=== PATIENT | female | born 1960 | race Caucasian/White ===

== ENCOUNTER 2020-02-18 09:40 | Outpatient (REF) | payer OTHER, SELFPAY ==
[2020-02-18 10:47] LABS: Basophils Absolute Auto 0.1 X10*3/uL (0.0-0.2); Basophils Percent Auto 1.4 % (0-2); Hemoglobin 15.3 g/dl (12.0-16.0); Imm Gran Abs Auto 0.03 X10*3/uL (0.00-0.03); Imm Gran Pct Auto 0.4 % (0.0-0.4); MANUAL DIFF FLAG SCAN; Mean Corpuscular Volume 89.3 fL (80-98); Mean Platelet Volume 11.4 fL (9.4-12.3); PLT CLUMP 1; Red Cell Distribution Width 12.6 % (11.0-16.0); SCAN SMEAR FLAG 1
[2020-02-18 10:49] LABS: Eosinophils Absolute Auto 0.2 X10*3/uL (0.0-0.4); Eosinophils Percent Auto 2.3 % (0-4); Lymphocytes Absolute Auto 1.7 X10*3/uL (1.2-4.9); Lymphocytes Percent Auto 20.9 % (20-40); Mean Corpuscular Hemoglobin 30.4 pg (27.0-33.0); Monocytes Absolute Auto 0.7 X10*3/uL (0.1-1.2); Monocytes Percent Auto 9.1 % (2-11); Neutrophils Absolute Auto 5.3 X10*3/uL (2.0-8.3); Neutrophils Percent Auto 65.9 % (45-73); Red Blood Count 5.04 X10*6/uL (4.20-5.50)
[2020-02-18 11:09] LABS: SLIDE REVIEW VERIFIED
[2020-02-18 11:31] LABS: Alanine Aminotransferase 20 U/L (0-31); Albumin Level 4.5 g/dL (3.5-5.0); Alkaline Phosphatase 65 U/L (39-117); Anion Gap 13 (12-20); Aspartate Amino Transferase 18 U/L (5-31); Bilirubin Total 0.5 mg/dL (0.0-1.0); Blood Urea Nitrogen 10 mg/dL (9-16); Calcium 9.5 mg/dL (8.4-10.2); Carbon Dioxide 28 mmol/L (22-29); Chloride 100 mmol/L (96-108); Cholesterol 177 mg/dL; Estimated Glomerular Filt Rate 56; Glucose Fasting 94 mg/dL (60-99); HDL Cholesterol 48 mg/dL; LDL Cholesterol Calculated 103 mg/dl; Potassium 5.1 mmol/l (3.3-5.1); Sodium 136 mmol/L (135-145); Triglycerides 133 mg/dL
[2020-02-18 11:52] LABS: Free T4 (Free Thyroxine) 1.33 ng/dL (0.71-1.85); Thyroid Stimulating Hormone 0.37 mIU/mL (0.32-4.0); Vitamin D 25-OH Total 27.9 ng/mL (>30)
== END 2020-02-18 09:41 | disposition home or self-care (01) ==
LOC: HO.LAB 09:40
PROVIDERS: PCP Internal Medicine; Visit Provider Internal Medicine
DX: Z00.00 Encounter for general adult medical examination without abnormal findings (principal); E03.9 Hypothyroidism, unspecified; E55.9 Vitamin D deficiency, unspecified
CPT/HCPCS: 36415; 80053; 80061; 82306; 84439; 84443; 85025

== ENCOUNTER 2020-02-29 10:41 | Outpatient (REF) | payer OTHER, SELFPAY ==
--- NOTE | 2020-02-29 | MM_ITS ---
EXAMINATION: MM SCREENING DIGITAL BREAST TOMOSYNTHESIS, BILATERAL CLINICAL INFORMATION: Screening. Asymptomatic. The lifetime risk of breast cancer based on the Tyrer-Cuzick Model is 7%. COMPARISON: Mammography: 03/26/2016, 01/27/2015, 08/26/2012 TECHNIQUE: Digital breast tomosynthesis is performed in both the craniocaudal and mediolateral oblique views along with computer-aided detection (CAD). Synthesized 2D images are generated from the tomosynthesis. FINDINGS: There are scattered areas of fibroglandular density (ACR BI-RADS breast composition Category b). There are no significant masses, abnormal calcifications, or other abnormalities. No developing density. Parenchymal pattern is similar to prior studies. MM/MM tomosynthesis screening BI IMPRESSION: No mammographic evidence of malignancy. ASSESSMENT: BI-RADS 1: Negative RECOMMENDATION: Routine annual mammography screening. This patient's information was entered into a reminder system with a target due date for their next mammogram.
== END 2020-02-29 10:42 | disposition home or self-care (01) ==
LOC: HO.MAMMO 10:41
PROVIDERS: PCP Internal Medicine; Visit Provider Internal Medicine
DX: Z12.31 Encounter for screening mammogram for malignant neoplasm of breast (principal)
CPT/HCPCS: 77063; 77067

== ENCOUNTER 2021-12-04 07:03 | Outpatient (REF) | payer OTHER, SELFPAY ==
[2021-12-04 07:23] LABS: MANUAL DIFF FLAG NO
[2021-12-04 07:37] LABS: Basophils Absolute Auto 0.1 X10*3/uL (0.0-0.2); Basophils Percent Auto 1.5 % (0-2); Eosinophils Absolute Auto 0.2 X10*3/uL (0.0-0.4); Eosinophils Percent Auto 2.9 % (0-4); Hematocrit 42.8 % (37.0-47.0); Hemoglobin 14.3 g/dl (12.0-16.0); Imm Gran Abs Auto 0.02 X10*3/uL (0.00-0.03); Imm Gran Pct Auto 0.3 % (0.0-0.4); Lymphocytes Absolute Auto 1.7 X10*3/uL (1.2-4.9); Lymphocytes Percent Auto 23.2 % (20-40); Mean Corpuscular HGB Conc 33.4 g/dl (31.0-35.0); Mean Corpuscular Hemoglobin 29.8 pg (27.0-33.0); Mean Corpuscular Volume 89.2 fL (80.0-98.0); Mean Platelet Volume 10.1 fL (9.4-12.3); Monocytes Absolute Auto 0.7 X10*3/uL (0.1-1.2); Monocytes Percent Auto 9.7 % (2-11); Neutrophils Absolute Auto 4.5 x10*3/uL (2.0-8.3); Neutrophils Percent Auto 62.4 % (45-73); Platelet Count 268 X10*3/uL (160-400); Red Cell Distribution Width 12.9 % (11.0-16.0); White Blood Count 7.2 X10*3/uL (4.8-10.8)
[2021-12-04 07:55] LABS: Alanine Aminotransferase 15 U/L (0-31); Albumin Level 4.4 g/dL (3.5-5.0); Alkaline Phosphatase 56 U/L (39-117); Anion Gap 14 (12-20); Aspartate Amino Transferase 15 U/L (5-31); Bilirubin Total 0.6 mg/dL (0.0-1.0); Blood Urea Nitrogen 15 mg/dL (9-16); Calcium 9.5 mg/dL (8.4-10.2); Carbon Dioxide 26 mmol/L (22-29); Chloride 104 mmol/L (96-108); Cholesterol 170 mg/dL; Estimated Glomerular Filt Rate 52; Glucose Fasting 101 mg/dL (60-99); HDL Cholesterol 46 mg/dL; LDL Cholesterol Calculated 95 mg/dl; Potassium 4.3 mmol/L (3.3-5.1); Sodium 140 mmol/L (135-145); Total Protein 7.7 g/dL (6.5-8.0); Triglycerides 149 mg/dL
[2021-12-04 08:10] LABS: Vitamin D 25-OH Total 37.2 ng/mL (>30)
[2021-12-04 10:15] LABS: Appearance Urine CLEAR; Color Urine STRAW; Glucose Urine UA NEG (NEG); Leukocyte Esterase Urine NEG (NEG); Nitrite Urine NEG (NEG); PH 5.5 (5.0-8.0); Specific Gravity - Urine <= 1.005 (1.005-1.025); Urine Blood TRACE (NEG); Urine Ketones NEG (NEG); Urine Protein NEG (NEG-TRACE)
[2021-12-04 11:05] LABS: RBC Urine 0-2 /HPF (0); Squamous Epithelial Cell Urine TRACE /LPF; WBC Urine 0 /HPF (0-4)
== END 2021-12-04 07:04 | disposition home or self-care (01) ==
LOC: HO.LAB 07:03
PROVIDERS: PCP Internal Medicine; Visit Provider Internal Medicine
DX: Z00.00 Encounter for general adult medical examination without abnormal findings (principal)
CPT/HCPCS: 36415; 80053; 80061; 81001; 82306; 85025

== ENCOUNTER 2021-12-10 10:56 | Outpatient (REF) | payer OTHER, SELFPAY ==
[2021-12-10 14:23] LABS: Thyroid Stimulating Hormone 0.71 uIU/mL (0.32-4.0)
== END 2021-12-10 10:57 | disposition home or self-care (01) ==
LOC: HO.10HDL 10:56
PROVIDERS: Visit Provider Internal Medicine
DX: E03.9 Hypothyroidism, unspecified (principal)
CPT/HCPCS: 36415; 84439; 84443

== ENCOUNTER 2022-01-01 12:46 | Outpatient (REF) | payer OTHER, SELFPAY ==
--- NOTE | ~2022-01-01 | MM_ITS ---
EXAMINATION: BONE DENSITOMETRY CLINICAL INDICATION: Menopause. COMPARISON: Baseline BD dated 11/07/2006. TECHNIQUE: Using a [employer] Software DXA System (software version: 13.1) manufactured by [employer], dual-energy x-ray absorptiometry was performed of the lumbar spine and left hip. The images are of good technical quality. Summary results are attached. FINDINGS: AP SPINE L1-L4: Current: BMD 1.428 g/cm2, Z-score 3.2, T-score 2.1, normal, 1.2% decrease from baseline (<5% change is not significant). Baseline: BMD 1.446 g/cm2. LEFT FEMUR, NECK: Current: BMD 0.922 g/cm2, Z-score 0.3, T-score -0.8, normal. Baseline: BMD 0.911 g/cm2. LEFT FEMUR, TOTAL: Current: BMD 1.011 g/cm2, Z-score 0.9, T-score 0.0, normal, 3.3% increase from baseline (<5% change is not significant). Baseline: BMD 0.979 g/cm2. IDENTIFIED RISK FACTORS: Secondary osteoporosis (early menopause). HISTORY OF FRACTURE: None listed. MEDICATIONS: Vitamin D. MM/XR DEXA axial skeleton IMPRESSION: 1. DIAGNOSIS: Normal bone density based on the lowest T-score value of -0.8 in the femoral neck applying World Health Organization criteria. 2. 10-YEAR FRACTURE RISK PREDICTION, FRAX: According to the guidelines, FRAX calculation should only be performed on patients in the osteopenia bone density category. Therefore, FRAX was not performed on this patient. 3. Treatment Recommendations: NOF guidelines recommend consideration for treatment in postmenopausal women and men age 50 and older presenting with the following: -A hip or vertebral (clinical or morphometric) fracture. -T-score less than or equal to -2.5 at the femoral neck or spine after appropriate evaluation to exclude secondary causes. -Low bone mass at the hip or spine and a 10-year fracture probability by FRAX of greater than or equal to 3% for hip fracture or greater than or equal to 20% for major osteoporotic fracture based on the [place] adapted WHO algorithm. 4. Other Recommendations: All treatment decisions require clinical judgment and consideration of individual patient factors, including patient preferences, comorbidities, previous drug use, risk factors not captured in the FRAX model (e.g. frailty, falls, vitamin D deficiency, increased bone turnover, interval significant decline in bone density) and possible under or overestimation of fracture risk by FRAX. FUTURE SCAN RECOMMENDATION: People with diagnosed cases of osteoporosis or at high risk for fracture should have regular bone mineral density tests. For patients eligible for Medicare, routine testing is allowed once every 2 years. The testing frequency can be increased to one year for patients who have rapidly progressing disease, those who are receiving or discontinuing medical therapy to restore bone mass, or have additional risk factors.
--- NOTE | ~2022-01-01 | MM_ITS ---
EXAMINATION: MM SCREENING DIGITAL BREAST TOMOSYNTHESIS, BILATERAL CLINICAL INFORMATION: Screening. Asymptomatic. The lifetime risk of breast cancer based on the Tyrer-Cuzick Model is 3.8%. COMPARISON: Mammography: February 29, 2020 and studies dating back to June 19, 2011 TECHNIQUE: Digital breast tomosynthesis is performed in both the craniocaudal and mediolateral oblique views along with computer-aided detection (CAD). Synthesized 2D images are generated from the tomosynthesis. FINDINGS: There are scattered areas of fibroglandular density (ACR BI-RADS breast composition Category b). There are no significant masses, abnormal calcifications, or other abnormalities. MM/MM tomosynthesis screening BI IMPRESSION: No significant changes from prior exam. ASSESSMENT: BI-RADS 1: Negative RECOMMENDATION: Routine annual mammography screening. This patient's information was entered into a reminder system with a target due date for their next mammogram.
== END 2022-01-01 12:47 | disposition home or self-care (01) ==
LOC: HO.MAMMO 12:46
PROVIDERS: PCP Internal Medicine; Visit Provider Internal Medicine
DX: Z12.31 Encounter for screening mammogram for malignant neoplasm of breast (principal); Z13.820 Encounter for screening for osteoporosis; Z78.0 Asymptomatic menopausal state
CPT/HCPCS: 77063; 77067; 77080

== ENCOUNTER 2022-09-23 09:48 | Outpatient (REF) | payer OTHER, SELFPAY ==
[2022-09-23 11:42] LABS: Anion Gap 11 (12-20); Blood Urea Nitrogen 8 mg/dL (9-16); Calcium 9.1 mg/dL (8.4-10.2); Carbon Dioxide 29 mmol/L (22-29); Chloride 104 mmol/L (96-108); Estimated Glomerular Filt Rate > 60; Glucose Random 91 mg/dL (60-115); Potassium 4.9 mmol/L (3.3-5.1); Sodium 139 mmol/L (135-145)
== END 2022-09-23 09:49 | disposition home or self-care (01) ==
LOC: HO.LAB 09:48
PROVIDERS: PCP Internal Medicine; Visit Provider Internal Medicine
DX: I12.9 Hypertensive chronic kidney disease with stage 1 through stage 4 chronic kidney disease, or unspecified chronic kidney disease (principal); N18.9 Chronic kidney disease, unspecified
CPT/HCPCS: 36415; 80048

== ENCOUNTER 2023-07-21 06:59 | Outpatient (REF) | payer OTHER, SELFPAY ==
[2023-07-21 07:10] LABS: MANUAL DIFF FLAG NO
[2023-07-21 07:41] LABS: Basophils Absolute Auto 0.1 X10*3/uL (0.0-0.2); Basophils Percent Auto 1.6 % (0-2); Eosinophils Absolute Auto 0.2 X10*3/uL (0.0-0.4); Eosinophils Percent Auto 2.3 % (0-4); Hematocrit 43.7 % (37.0-47.0); Hemoglobin 14.8 g/dl (12.0-16.0); Imm Gran Abs Auto 0.03 X10*3/uL (0.00-0.03); Imm Gran Pct Auto 0.3 % (0.0-0.4); Lymphocytes Absolute Auto 2.5 X10*3/uL (1.2-4.9); Lymphocytes Percent Auto 28.8 % (20-40); Mean Corpuscular HGB Conc 33.9 g/dl (31.0-35.0); Mean Corpuscular Hemoglobin 30.2 pg (27.0-33.0); Mean Corpuscular Volume 89.2 fL (80.0-98.0); Mean Platelet Volume 10.3 fL (9.4-12.3); Monocytes Absolute Auto 0.8 X10*3/uL (0.1-1.2); Monocytes Percent Auto 8.8 % (2-11); Neutrophils Absolute Auto 5.1 x10*3/uL (2.0-8.3); Neutrophils Percent Auto 58.2 % (45-73); Platelet Count 276 X10*3/uL (160-400); White Blood Count 8.7 X10*3/uL (4.8-10.8)
[2023-07-21 08:08] LABS: Alanine Aminotransferase 21 U/L (0-31); Albumin Level 4.1 g/dL (3.5-5.0); Alkaline Phosphatase 61 U/L (39-117); Anion Gap 11 (12-20); Aspartate Amino Transferase 15 U/L (5-31); Bilirubin Total 0.5 mg/dL (0.0-1.0); Blood Urea Nitrogen 16 mg/dL (9-16); Carbon Dioxide 24 mmol/L (22-29); Chloride 109 mmol/L (96-108); Cholesterol 147 mg/dL (<200); Estimated Glomerular Filt Rate > 60; Glucose Fasting 96 mg/dL (60-99); HDL Cholesterol 39 mg/dL (>40); LDL Cholesterol Calculated 78 mg/dL (<100); Potassium 4.1 mmol/L (3.3-5.1); Sodium 140 mmol/L (135-145); Total Protein 7.5 g/dL (6.5-8.0); Triglycerides 150 mg/dL (<150)
[2023-07-21 08:24] LABS: Vitamin D 25-OH Total 43.3 ng/mL (>30)
== END 2023-07-21 07:00 | disposition home or self-care (01) ==
LOC: HO.LAB 06:59
PROVIDERS: PCP Internal Medicine; Visit Provider Internal Medicine
DX: Z00.00 Encounter for general adult medical examination without abnormal findings (principal); I10 Essential (primary) hypertension; N18.9 Chronic kidney disease, unspecified
CPT/HCPCS: 36415; 80053; 80061; 82306; 85025

== ENCOUNTER 2023-07-28 11:07 | Outpatient (REF) | payer OTHER, SELFPAY ==
[2023-07-28 15:06] LABS: Free T4 (Free Thyroxine) 1.06 ng/dL (0.71-1.85); Thyroid Stimulating Hormone 0.39 uIU/mL (0.32-4.0)
[2023-07-29 07:49] LABS: Triiodothyronine T3 Free 2.8 pg/mL (2.3-4.2)
== END 2023-07-28 11:08 | disposition home or self-care (01) ==
LOC: HO.10HDL 11:07
PROVIDERS: Visit Provider Internal Medicine
DX: E03.9 Hypothyroidism, unspecified (principal); R63.8 Other symptoms and signs concerning food and fluid intake
CPT/HCPCS: 36415; 84439; 84443; 84481

== ENCOUNTER 2024-09-20 11:23 | Outpatient (AMB) | payer OTHER, SELFPAY ==
--- NOTE | 2024-09-20 11:25 | A.OFFPC_ITS ---
Vital Signs 09/20/24 11:30 09/20/24 11:46 Height 5 ft 2 in Weight 79.832 kg BMI 32.2 BP 167/96 H 150/84 H Respiration 16 Pulse 104 H Pulse Source Pulse Oximeter Temp 98.4 F Temp Source Temporal Artery Scan Pulse Oximetry (%) 97 Oxygen Delivery Method Room Air Intake Visit Reasons: Routine - see comments Practical Nurse Required: No Accompanied by: Self / Same As Patient Allergies butorphanol [From STADOL] Allergy (Unknown, Unverified 09/20/24 11:29) DIFF BREATHING, SWELLING latex [LATEX] Allergy (Unknown, Unverified 09/20/24 11:29) ANAPHYLAXIS Medication List - Last Reconciled 09/20/24 by MALA Murillo fluticasone propionate 50 mcg/actuation 1 spray intranasal BID PRN levothyroxine 100 mcg PO DAILY lisinopril 5 mg PO DAILY sertraline 50 mg PO BEDTIME simvastatin 20 mg PO DAILY HPI HPI Comments History of Present Illness Details 63-year-old female with history of hypot hyroidism, hypertension, anxiety, and hyperlipidemia presents to the office today for management of chronic conditions and to establish care. She tells me that she will be switching to Dr. [place] at [facility] in March but will need care until this time. She reports having significant anxiety which adversely affects her blood pressures when she comes to the office. Initial blood pressure is 167/96, repeat 150/84. She does have cough at home but has not been regularly checking blood pressures. She reports anxiety and other facets of her life but no significant depression. She has been exercising with light weights and walking but states she is still gaining weight. She is concerned about her thyroid levels. She has a history of hyperthyroidism s/p radioactive iodine. No other concerns at this time. [facility] Medical History (Updated 09/20/24 @ 17:35 by MALA Murillo) Anxiety HTN (hypertension) Hyperlipidemia Hypothyroidism Surgical History (Updated 09/17/24 @ 12:35 by Apryl Ugalde) History of colonoscopy (~09/03/13) Review of Systems Const All systems reviewed & are unremarkable except as noted in HPI and below Physical exam (Primary Care) Vital Signs: Last Vital Signs Temp 98.4 F 09/20/24 11:30 Pulse 104 H 09/20/24 11:30 Resp 16 09/20/24 11:30 BP 150/84 H 09/20/24 11:46 Pulse Ox 97 09/20/24 11:30 Oxygen Delivery Method Room Air 09/20/24 11:30 BMI result Body Mass Index 32.2 Const Other: Constitutional - Awake and Alert, No apparent distress Eyes - PERRL Cardiovascular - S1S2, RRR, No edema Respiratory - Normal lung expansion, Normal respiratory effort, No respiratory distress, CTA bilaterally Extremities - no calf tenderness bilaterally, no swelling Skin - Warm/Dry Neurological - Alert & oriented x3 Psychological - Appropriate affect, anxious Coding Level of Care Code New Pt Level 4 (64533) Complex EM visit Add On G2211 Diagnoses Hypothyroidism E03.9 Hyperlipidemia E78.5 HTN (hypertension) I10 Anxiety F41.9 Assessment & Plan Assessment & Plan (1) Hypothyroidism: Code(s): E03.9 - Hypothyroidism, unspecified Category: Medical Plan: TSH and free T4 ordered. Discussed dosing/administration of levothyroxine. Continue levothyroxine 100mcg daily, dose to be adjusted pending results. (2) Hyperlipidemia: Code(s): E78.5 - Hyperlipidemia, unspecified Category: Medical Plan: Fasting lipid panel ordered. Continue simvastatin 20mg, dose to be adjusted pending results. Low fat diet and exercise advised (3) HTN (hypertension): Code(s): I10 - Essential (primary) hypertension Category: Medical Plan: uncontrolled on recheck with bp 150/84. Suspect component of white coat hypertension. Recommend having her sister check her blood pressures at home, goal <140/90. Contact the office if BPs remain uncontrolled so as to reduce risk of heart attack and stroke. Low sodium diet. (4) Anxiety: Code(s): F41.9 - Anxiety disorder, unspecified Category: Medical Plan: Uncontrolled. Will initiate sertraline 50 mg nightly to help manage symptoms. She is counseled on dosing and side effects of the medication. She will follow- up in the office in 6 weeks to evaluate effectiveness. Plan Follow up in 6 weeks in the office. Labs to be completed following visit. Orders: Orders Basic Metabolic Panel Today E03.9 - Hypothyroidism, unspecified, E78.5 - Hyperlipidemia, unspecified, I10 - Essential (primary) hypertension, Z13.1 - Encounter for screening for diabetes mellitus Lipid Panel Today E03.9 - Hypothyroidism, unspecified, E78.5 - Hyperlipidemia, unspecified, I10 - Essential (primary) hypertension, Z13.1 - Encounter for screening for diabetes mellitus Liver Panel Today E03.9 - Hypothyroidism, unspecified, E78.5 - Hyperlipidemia, unspecified, I10 - Essential (primary) hypertension, Z13.1 - Encounter for screening for diabetes mellitus TSH reflex Free T4 Today E03.9 - Hypothyroidism, unspecified, E78.5 - Hyperlipidemia, unspecified, I10 - Essential (primary) hypertension, Z13.1 - Encounter for screening for diabetes mellitus Complete Blood Count Auto Diff Today E03.9 - Hypothyroidism, unspecified, E78.5 - Hyperlipidemia, unspecified, I10 - Essential (primary) hypertension, Z13.1 - Encounter for screening for diabetes mellitus Hemoglobin A1c Today E03.9 - Hypothyroidism, unspecified, E78.5 - Hyperlipidemia, unspecified, I10 - Essential (primary) hypertension, Z13.1 - Encounter for screening for diabetes mellitus Medications: New sertraline Take 0.5 tab nightly x 1 week, then take 1 tab nightly 50 mg PO BEDTIME 90 tabs 1RF
[2024-09-20 11:30] VITALS: BP 167/96; PULSE 104; RESP 16; TEMP 36.9; O2SAT 97; BMI 32.2
[2024-09-20 11:46] VITALS: BP 150/84
== END 2024-09-20 11:58 | disposition home or self-care (01) ==
LOC: HO.HMCHD 11:23
PROVIDERS: PCP Internal Medicine; Visit Provider Physician Assistant
DX: E03.9 Hypothyroidism, unspecified (principal); E78.5 Hyperlipidemia, unspecified; I10 Essential (primary) hypertension; F41.9 Anxiety disorder, unspecified

== ENCOUNTER → 2024-09-20 11:23 | Outpatient (BNVA) | payer OTHER, SELFPAY | PROVIDERS: PCP Internal Medicine; Visit Provider Physician Assistant ==

== ENCOUNTER 2024-09-20 12:00 | Outpatient (REF) | payer OTHER, SELFPAY ==
[2024-09-20 13:07] LABS: MANUAL DIFF FLAG NO
[2024-09-20 13:25] LABS: Basophils Absolute Auto 0.2 X10*3/uL (0.0-0.2); Basophils Percent Auto 1.9 % (0-2); Eosinophils Absolute Auto 0.2 X10*3/uL (0.0-0.4); Eosinophils Percent Auto 2.9 % (0-4); Hematocrit 44.6 % (37.0-47.0); Hemoglobin 15.1 g/dl (12.0-16.0); Imm Gran Abs Auto 0.05 X10*3/uL (0.00-0.03); Imm Gran Pct Auto 0.6 % (0.0-0.4); Lymphocytes Absolute Auto 1.7 X10*3/uL (1.2-4.9); Lymphocytes Percent Auto 21.9 % (20-40); Mean Corpuscular HGB Conc 33.9 g/dl (31.0-35.0); Mean Corpuscular Hemoglobin 30.4 pg (27.0-33.0); Mean Corpuscular Volume 89.7 fL (80.0-98.0); Mean Platelet Volume 11.4 fL (9.4-12.3); Monocytes Absolute Auto 0.8 X10*3/uL (0.1-1.2); Monocytes Percent Auto 10.2 % (2-11); Neutrophils Absolute Auto 4.9 x10*3/uL (2.0-8.3); Neutrophils Percent Auto 62.5 % (45-73); Platelet Count 227 X10*3/uL (160-400); Red Blood Count 4.97 X10*6/uL (4.20-5.50); White Blood Count 7.9 X10*3/uL (4.8-10.8)
[2024-09-20 13:30] LABS: Estimated Average Glucose 108 mg/dL; Hemoglobin A1C 138.5442 umol/L; Hemoglobin A1c % 5.4 % (<6.0); Total Hemoglobin (HGBA1C) 3949.4757 umol/L
[2024-09-20 13:47] LABS: Alanine Aminotransferase 25 U/L (0-31); Albumin Level 4.4 g/dL (3.5-5.0); Alkaline Phosphatase 66 U/L (39-117); Anion Gap 12 (12-20); Aspartate Amino Transferase 24 U/L (5-31); Bilirubin Direct 0.2 mg/dL (0.0-0.5); Bilirubin Total 0.5 mg/dL (0.0-1.0); Blood Urea Nitrogen 12 mg/dL (9-16); Calcium 9.3 mg/dL (8.4-10.2); Carbon Dioxide 24 mmol/L (22-29); Chloride 106 mmol/L (96-108); Cholesterol 155 mg/dL (<200); Estimated Glomerular Filt Rate > 60; Glucose Random 103 mg/dL (60-115); HDL Cholesterol 42 mg/dL (>40); LDL Cholesterol Calculated 88 mg/dL (<100); Potassium 4.4 mmol/L (3.3-5.1); Sodium 138 mmol/L (135-145); Triglycerides 125 mg/dL (<150)
[2024-09-20 13:49] LABS: TSH reflex Free T4 0.26 uIU/mL (0.32-4.0)
[2024-09-20 14:36] LABS: Free T4 (Free Thyroxine) 1.25 ng/dL (0.71-1.85)
== END 2024-09-20 12:01 | disposition home or self-care (01) ==
LOC: HO.10HDL 12:00
PROVIDERS: Visit Provider Physician Assistant
DX: I10 Essential (primary) hypertension (principal); E78.5 Hyperlipidemia, unspecified; E03.9 Hypothyroidism, unspecified; Z13.1 Encounter for screening for diabetes mellitus
CPT/HCPCS: 36415; 80048; 80061; 80076; 83036; 84439; 84443; 85025

== ENCOUNTER 2024-10-28 10:18 | Outpatient (REF) | payer OTHER, SELFPAY ==
--- OUTSIDE RECORDS SUMMARY | 2024-10-28 11:56 | XMS_ITS | Patient Health Record ---
Author Organization [facility] Address [address] [place] [address] Care Team Providers Care Implementation Project Coordinator Name Role Phone Tommy Abraham MD Primary Care Provider Chapo Isaac Jr Unavailable Allergies Allergen (clinical drug ingredient) Drug/Non Drug Allergy documented on EMR Reaction Allergy Type Onset Date Status Stadol Unknown Drug Allergy Active Latex latex (uncoded) Unknown Allergy Acti ve Reason For Referral No Information Medications Medication SIG (Take, Route, Frequency, Duration) Notes Start Date End Date Status Levothyroxine Sodium 100mg Active Simvastatin 20mg Act kody MoviPrep 100 GM as directed before colonoscopy Orally for 1 dose 05/07/2013 05/05/2024 Active Problems Problem Type SNOMED Code ICD Code Onset Dates Problem Status W/U Status Risk Notes Problem Colon cancer screening (350562306) Colon cancer screening (V76.51) Active confirmed Problem Rectal bleeding (45465266) Rectal bleeding (569.3) Active confirmed Plan Of Treatment Future Test Test Name Order Date COLONOSCOPY 05/07/2013 Insurance Providers Payer Name Payer Address Payer Phone Subscriber Number Group Number Insured Name Patient Relationship to Insured Coverage Start Date Coverage End Date [facility] [address] [place] [phone] [id number] MICK PRYOR Self - patient is the insured Medical (General) History Medical History History ICD Code Graves' disease status post radioactive iodine treatment elevated cholesterol Surgical History Surgery Date(Month/Year) cholecystectomy 1981 appendectomy 1981 section X 3 1978,1980,1985
[2024-10-28 13:55] LABS: TSH reflex Free T4 0.22 uIU/mL (0.32-4.0)
[2024-10-28 14:48] LABS: Free T4 (Free Thyroxine) 1.29 ng/dL (0.71-1.85)
== END 2024-10-28 10:19 | disposition home or self-care (01) ==
LOC: HO.10HDL 10:18
PROVIDERS: Visit Provider Physician Assistant
DX: E03.9 Hypothyroidism, unspecified (principal)
CPT/HCPCS: 36415; 84439; 84443

== ENCOUNTER 2024-11-01 09:21 | Outpatient (AMB) | payer OTHER, SELFPAY ==
[2024-11-01 09:11] VITALS: BP 140/84; PULSE 78; TEMP 36.7; O2SAT 98; BMI 30.4
--- NOTE | 2024-11-01 09:11 | A.OFFPC_ITS ---
Vital Signs 11/01/24 09:11 Height 5 ft 2 in Weight 166 lb BMI 30.4 BP 140/84 H Blood Pressure Location Lt brachial Position Sitting Pulse 78 Pulse Source Pulse Oximeter Temp 98.1 F Temp Source Axillary Pulse Oximetry (%) 98 Oxygen Delivery Method Room Air Intake Visit Reasons: 6 Week F/U - see comments Radiator Repairer Required: No Accompanied by: Self / Same As Patient Allergies butorphanol (From STADOL) Allergy (Unknown, Verified 11/01/24 09:11) DIFF BREATHING, SWELLING latex (LATEX) Allergy (Unknown, Verified 11/01/24 09:11) ANAPHYLAXIS Tobacco use date assessed: 11/01/24 Fall risk assessment: No Falls in past year Last assessed Fall Risk: 11/01/24 Dental Screening Dental Screen Date: 11/01/24 Did you have a dental visit in the last 12 months?: Yes Did you have a dental problem in the last 6 months where you did not have access to dental care?: No PFSH Medical History Anxiety HTN (hypertension) Hyperlipidemia Hypothyroidism Surgical History History of colonoscopy (~09/03/13) Family History (Updated 11/01/24 @ 09:29 by Justina Zuniga MA) Mother No problems noted. Father No problems noted. Social History Housing: House Patient Tobacco Use Status: Former Tobacco user e-Cigarette/Vaping Use: Former Use service: No Current occupational status: other Cognitive needs: No Hearing needs: No Vision needs: Yes (rx glasses) Questionnaire PHQ-9 Over the last 2 weeks, how often have you been bothered by any of the following problems? 1. Little interest or pleasure in doing things: not at all 2. Feeling down, depressed, or hopeless: not at all 3. Trouble falling or staying asleep, or sleeping too much: not at all 4. Feeling tired or having little energy: not at all 5. Poor appetite or overeating: not at all 6. Feeling bad about yourself - or that you are a failure or have let yourself or your family down: not at all 7. Trouble concentrating on things, such as reading the newspaper or watching television: not at all 8. Moving or speaking so slowly that other people could have noticed. Or the opposite - being so fidgety or restless that you have been moving around a lot more than usual: not at all 9. Thoughts that you would be better off or of hurting yourself in some way: not at all Total score: 0 Source: Developed by Drs. Brian Bryant, Helen Styles, Lino Sethi and colleagues, with an educational bossman from [employer]. Thrive Questionnaire Date Thrive assessed: 11/01/24 I am a: Patient Within the past 12 months, did the food you bought not last and you didn't have the money to get more?: Never true Within the past 12 months, did you worry whether your food would run out before you got money to buy more?: Never true Do you have trouble paying for medicines?: No Do you have trouble getting transportation to medical appointments?: No Do you have trouble paying your heating and electricity bill?: No Do you have trouble taking care of your child, family member or friend?: No Do you have trouble with day-to-day activities such as bathing, preparing meals, shopping, managing finances, etc.?: No Are you currently unemployed and looking for a job?: No Are you interested in more education?: No THRIVE Score: 0 AUDIT C Alcohol Use Questionnaire (AUDIT-C) 1. How often do you have a drink containing alcohol?: Never 3. How often do you have six or more drinks on one occasion?: Never Total Score: 0 RIGOBERTO-7 AMB Questionnaire RIGOBERTO-7 Date RIGOBERTO - 7 assessed: 11/01/24 Feeling nervous, anxious, or on edge: 0 = Not at all Not being able to stop or control worryin = Not at all Worrying too much about different things: 0 = Not at all Trouble relaxin = Not at all Being so restless that it is hard to sit still: 0 = Not at all Becoming easily annoyed or irritable: 0 = Not at all Feeling afraid as if something awful might happen: 0 = Not at all Total RIGOBERTO-7 score (0-4 normal; 5-9 mild; 10-14 moderate; 15-21 severe): 0 Source: Developed by Drs. Brian Bryant, Helen Styles, Lino Sethi and colleagues, with an educational bossman from [employer]. Physical exam (Primary Care) Vital Signs: Last Vital Signs Temp 98.1 F 11/01/24 09:11 Pulse 78 11/01/24 09:11 BP 140/84 H 11/01/24 09:11 Pulse Ox 98 11/01/24 09:11 Oxygen Delivery Method Room Air 11/01/24 09:11 BMI result Body Mass Index 30.4 Tobacco/Smoking Status: Tobacco use Status Tobacco use date assessed 11/01/24 11/01/24 09:12 Patient Tobacco Use Status Former Tobacco user 11/01/24 09:29 e-Cigarette/Vaping Use Former Use 11/01/24 09:29 PHQ-9: PHQ-9 Score PHQ-9: Total score 0 11/01/24 09:29 Thrive Assessment: Date of Thrive Assessment Date Thrive assessed 11/01/24 11/01/24 09:12 Coding Level of Care Code Est Pt Level 4 (70636) Complex EM visit Add On G2211 Diagnoses Hypothyroidism E03.9 Assessment & Plan Assessment & Plan (1) Hypothyroidism: Code(s): E03.9 - Hypothyroidism, unspecified Category: Medical Plan: Patient wishes to transfer care to Dr Mathis in March. SHe prefers to get all screening procedures done after she meets him. TSH coninues to be suppressed and Synthroid dosage was reduced to 88mcg a day Plan History of Present Illness - The patient is a 63-year-old female presenting for medication management and preventative care. - Depression: The patient reports feeling great on Zoloft, although she is unsure if there is a significant difference, but notes feeling a bit calmer. - Hypothyroidism: The patient's thyroid medication dosage was reduced to six days a week, as per previous blood work results. - Preventative care: The patient has upcoming appointments for a mammogram and colonoscopy but has delayed them due to personal commitments, including assisting her sister post-surgery. - Preventative care: Cervical cancer screening was also discussed as part of her health maintenance. Social History - Family status: The patient is currently assisting her sister who recently underwent major surgery. Review of Systems - Psychiatric: Reports feeling great on Zoloft, with a possible increase in calmness. Physical Exam General: Cooperative and healthy appearing Nutritional Appearance: Well nourished Orientation/consciousness: Patient oriented x3 Limitations: No limitations Head: Normal to inspection General: Appearance normal, both eyes and all related structures Neck: Normal visual inspection Chest: Normal palpation of entire chest wall Respiratory: Normal respiratory effort Neurology: Patient oriented x3 Results Plan 1. Depression - Continue current Zoloft regimen as the patient reports feeling calmer. 2. Hypothyroidism - Continue current thyroid medication regimen of six days a week as per previous blood work results. 3. Preventative Care: Mammogram - Schedule mammogram when personal commitments allow. 4. Preventative Care: Colonoscopy - Schedule colonoscopy when personal commitments allow. 5. Preventative Care: Cervical Cancer Screening - Discussed the importance of scheduling cervical cancer screening. Discussion Notes I discussed with the patient the continuation of her current Zoloft regimen as she reports feeling calmer. We also reviewed her thyroid medication adjustment to six days a week, which aligns with her previous blood work results. I emphasized the importance of scheduling her mammogram, colonoscopy, and cervical cancer screening when her personal commitments allow. Patient Instructions - Continue taking Zoloft as prescribed. - Take thyroid medication six days a week as directed. - Schedule mammogram, colonoscopy, and cervical cancer screening when possible. Medications: New levothyroxine (Levoxyl) 88 mcg PO DAILY 90 tabs 1RF Discontinued levothyroxine Take 1 tab daily, skip dose on friday Discontinued Reason: Doctor's Order 100 mcg PO DAILY 90 tabs 1RF
--- OUTSIDE RECORDS SUMMARY | 2024-11-01 09:39 | XMS_ITS | Patient Health Record ---
Author Organization [facility] Address [address] [place] [address] Care Team Providers Care Nurses Medical Assistants Phlebotomists Name Role Phone Tommy Abraham MD Primary [...] Status Risk Notes Problem Colon cancer screening (V76.51) Active confirmed Problem Rectal bleeding (28137062) Rectal bleeding (569.3) Active confirmed Plan Of Treatment Future Test Test Name Order Date COLONOSCOPY 05/07/2013 Insurance Providers Payer Name Payer Address Payer Phone Subscriber Number Group Number Insured Name Patient Relationship to Insured Coverage Start Date Coverage End Date [facility] [address] [place] [phone] [id number] DESTINMICK Johansen Self - patient is the insured Medical (General) History Medical History History ICD Code Graves' disease status post radioactive iodine treatment elevated cholesterol Surgical History Surgery Date(Month/Year) cholecystectomy 1981 appendectomy 1982 section X 3 1978,1980,1985
== END 2024-11-01 09:50 | disposition home or self-care (01) ==
LOC: HO.HMCHD 09:21
PROVIDERS: PCP Internal Medicine; Visit Provider Internal Medicine
DX: E03.9 Hypothyroidism, unspecified (principal)

== ENCOUNTER → 2024-11-01 09:21 | Outpatient (BNVA) | payer OTHER, SELFPAY | PROVIDERS: PCP Internal Medicine; Visit Provider Internal Medicine | DX: Z13.89 Encounter for screening for other disorder (principal) ==

== ENCOUNTER 2025-03-14 13:38 | Outpatient (REF) | payer OTHER, SELFPAY ==
[2025-03-14 15:26] LABS: MANUAL DIFF FLAG NO
[2025-03-14 16:01] LABS: Hematocrit 43.0 % (37.0-47.0); Hemoglobin 14.3 g/dl (12.0-16.0); Imm Gran Abs Auto 0.04 X10*3/uL (0.00-0.03); Imm Gran Pct Auto 0.5 % (0.0-0.4); Lymphocytes Absolute Auto 2.0 X10*3/uL (1.2-4.9); Mean Corpuscular HGB Conc 33.3 g/dl (31.0-35.0); Mean Corpuscular Hemoglobin 29.4 pg (27.0-33.0); Mean Corpuscular Volume 88.5 fL (80.0-98.0); NRBC Abs Auto 0.000 X10*3/uL (0.0-0.012); NRBC Pct Auto 0.0 /100WBC (0.0-0.2); Platelet Count 270 X10*3/uL (160-400); Red Blood Count 4.86 X10*6/uL (4.20-5.50); White Blood Count 8.8 X10*3/uL (4.8-10.8)
[2025-03-14 17:04] LABS: Alanine Aminotransferase 21 U/L (0-31); Albumin Level 4.5 g/dL (3.5-5.0); Alkaline Phosphatase 66 U/L (39-117); Anion Gap 13 (12-20); Aspartate Amino Transferase 23 U/L (5-31); Blood Urea Nitrogen 13 mg/dL (9-16); Calcium 9.4 mg/dL (8.4-10.2); Carbon Dioxide 26 mmol/L (22-29); Chloride 106 mmol/L (96-108); Cholesterol 176 mg/dL (<200); Estimated Glomerular Filt Rate 60; HDL Cholesterol 48 mg/dL (>40); Potassium 4.6 mmol/L (3.3-5.1); Sodium 140 mmol/L (135-145); Total Protein 7.9 g/dL (6.5-8.0); Triglycerides 117 mg/dL (<150)
[2025-03-14 17:31] LABS: Free T4 (Free Thyroxine) 1.20 ng/dL (0.71-1.85); Thyroid Stimulating Hormone 0.34 uIU/mL (0.32-4.0)
== END 2025-03-14 13:39 | disposition home or self-care (01) ==
LOC: HO.LAB 13:38
PROVIDERS: PCP Internal Medicine; Visit Provider Internal Medicine
DX: I10 Essential (primary) hypertension (principal); E78.00 Pure hypercholesterolemia, unspecified; D64.9 Anemia, unspecified; E03.9 Hypothyroidism, unspecified; E55.9 Vitamin D deficiency, unspecified; F41.9 Anxiety disorder, unspecified; E78.5 Hyperlipidemia, unspecified; J30.9 Allergic rhinitis, unspecified; E66.9 Obesity, unspecified
CPT/HCPCS: 36415; 80053; 80061; 82306; 84439; 84443; 85025; 96127

== ENCOUNTER 2025-03-14 13:38 | Outpatient (AMB) | payer OTHER, SELFPAY ==
[2025-03-14 13:47] VITALS: BP 132/80; PULSE 101; O2SAT 98; BMI 30.8
--- NOTE | 2025-03-14 13:47 | MHC.PC.OV ---
Vital Signs 03/14/25 13:47 03/14/25 14:32 Height 5 ft 2 in Weight 168 lb 4 oz BMI 30.8 BP 132/80 146/84 H Blood Pressure Location Lt brachial Lt brachial Position Sitting Sitting Pulse 101 H Pulse Source Pulse Oximeter Pulse Oximetry (%) 98 Oxygen Delivery Method Room Air Intake Visit Reasons: establish care Temporary Administrative Assistant Required: No Accompanied by: Self / Same As Patient Allergies butorphanol (From STADOL) Allergy (Unknown, Verified 03/14/25 14:25) DIFF BREATHING, SWELLING latex (LATEX) Allergy (Unknown, Verified 03/14/25 14:25) ANAPHYLAXIS Medication List - Last Reconciled 03/14/25 by Oneil Montana MD fluticasone propionate 50 mcg/actuation 1 spray intranasal BID PRN levothyroxine (Levoxyl) 88 mcg PO DAILY lisinopril 5 mg PO DAILY simvastatin 20 mg PO DAILY Tobacco use date assessed: 03/14/25 Fall risk assessment: No Falls in past year Last assessed Fall Risk: 03/14/25 Dental Screening Dental Screen Date: 03/14/25 Did you have a dental visit in the last 12 months?: Yes Did you have a dental problem in the last 6 months where you did not have access to dental care?: No Was dental information given to patient?: Patient has dentist HPI establish care HPI Details Patient comes in today to establish care - she is switching over from Dr. Abraham, who retired from active practice earlier this year She presents today for further management of her chronic conditions, which include hyperthyroidism, hypertension, hyperlipdiemia and anxiety - Hypothyroidism: The patient has a history of hyperthyroidism treated with radioactive iodine. - She was on a stable dose of thyroid medication for 24 years before it was decreased from 100 mcg to 88 mcg in October due to being overmedicated. - Since the dose reduction, she has noted weight gain despite maintaining a diet of fresh, home-cooked meals. - Hypertension and Anxiety: The patient takes medication for blood pressure and has a history of white coat syndrome since childhood, which also occurred with her previous physician. - A previous provider prescribed sertraline for anxiety, but she never took it as she felt it was unnecessary. - Hyperlipidemia: The patient is on medication for cholesterol. - Health Maintenance: Her last mammogram was in 2021 and she is due for a repeat screening She also is due for her repeat colonoscopy - she last had her colonoscopy done with Dr. Pierce in 2013 and will be reaching out to Dr. Pierce's office to schedule her colonoscopy ERI She denies any headaches or dizziness Denies any chest pains, no shortness of breath No nausea/vomiting, no abdominal pain No change in bowel habits noted She denies any acute urinary symptoms PFSH Medical History (Updated 03/23/25 @ 06:23 by Oneil Montana MD) Obesity (BMI 30-39.9) Allergic rhinitis Acquired hypothyroidism Pure hypercholesterolemia Essential hypertension Anxiety HTN (hypertension) Hyperlipidemia Hypothyroidism Surgical History History of colonoscopy (~09/03/13) Family History Mother No problems noted. Father No problems noted. Social History Housing: House Patient Tobacco Use Status: Former Tobacco user e-Cigarette/Vaping Use: Former Use service: No Current occupational status: other Cognitive needs: No Hearing needs: No Vision needs: Yes (rx glasses) Questionnaire PHQ-9 Over the last 2 weeks, how often have you been bothered by any of the following problems? 1. Little interest or pleasure in doing things: not at all 2. Feeling down, depressed, or hopeless: not at all 3. Trouble falling or staying asleep, or sleeping too much: not at all 4. Feeling tired or having little energy: not at all 5. Poor appetite or overeating: not at all 6. Feeling bad about yourself - or that you are a failure or have let yourself or your family down: not at all 7. Trouble concentrating on things, such as reading the newspaper or watching television: not at all 8. Moving or speaking so slowly that other people could have noticed. Or the opposite - being so fidgety or restless that you have been moving around a lot more than usual: not at all 9. Thoughts that you would be better off or of hurting yourself in some way: not at all Total score: 0 Depression Screening Interpretation: Negative Depression Screening Done: Yes 45805 - PHQ-9 Billing: Yes Source: Developed by Drs. Brian Bryant, Lino Hester and colleagues, with an educational bossman from [employer]. Thrive Questionnaire Date Thrive assessed: 03/14/25 I am a: Patient What is your living situation today?: I have a steady place to live Within the past 12 months, did the food you bought not last and you didn't have the money to get more?: Never true Within the past 12 months, did you worry whether your food would run out before you got money to buy more?: Never true Do you have trouble paying for medicines?: No Do you have trouble getting transportation to medical appointments?: No Do you have trouble paying your heating and electricity bill?: No Do you have trouble taking care of your child, family member or friend?: No Do you have trouble with day-to-day activities such as bathing, preparing meals, shopping, managing finances, etc.?: No Are you currently unemployed and looking for a job?: No Are you interested in more education?: No Please select the resources that you would like help with: None Currently or been in a relationship where the following occur: No concerns reported THRIVE Score: 0 AUDIT C Alcohol Use Questionnaire (AUDIT-C) 1. How often do you have a drink containing alcohol?: Never 3. How often do you have six or more drinks on one occasion?: Never Total Score: 0 Score Reviewed/Action Taken: Yes RIGOBERTO-7 AMB Questionnaire RIGOBERTO-7 Date RIGOBERTO - 7 assessed: 03/14/25 Feeling nervous, anxious, or on edge: 0 = Not at all Not being able to stop or control worryin = Not at all Worrying too much about different things: 0 = Not at all Trouble relaxin = Not at all Being so restless that it is hard to sit still: 0 = Not at all Becoming easily annoyed or irritable: 0 = Not at all Feeling afraid as if something awful might happen: 0 = Not at all Total RIGOBERTO-7 score (0-4 normal; 5-9 mild; 10-14 moderate; 15-21 severe): 0 Source: Developed by Helen Berman Kurt Kroenke and colleagues, with an educational bossman from [employer]. Review of Systems Const Denies chills, Denies fatigue, Denies fever(s), Denies headache(s) and Reports weight gain ENT Denies dysphagia, Denies dizziness, Denies otalgia, Denies headache(s), Denies neck pain, Denies odynophagia and Denies sore throat Card Denies chest pain, Denies palpitations and Denies dyspnea Resp Denies cough and Denies dyspnea GI Denies abdominal pain, Denies constipation, Denies dysphagia, Denies heartburn, Denies diarrhea, Denies nausea, Denies odynophagia and Denies vomiting Denies difficulty voiding, Denies nocturia and Denies dysuria Musc Denies neck pain Neuro Denies dizziness and Denies headache(s) Endo Denies fatigue and Denies palpitations Physical exam (Primary Care) Vital Signs: Last Vital Signs Pulse 101 H 03/14/25 13:47 BP 146/84 H 03/14/25 14:32 Pulse Ox 98 03/14/25 13:47 Oxygen Delivery Method Room Air 03/14/25 13:47 BMI result Body Mass Index 30.8 Tobacco/Smoking Status: Tobacco use Status Tobacco use date assessed 03/14/25 03/14/25 13:48 Patient Tobacco Use Status Former Tobacco user 03/14/25 13:48 e-Cigarette/Vaping Use Former Use 03/14/25 13:48 PHQ-9: PHQ-9 Score PHQ-9: Total score 0 03/22/25 09:12 Depression Screening Interpretation: Negative Thrive Assessment: Date of Thrive Assessment Date Thrive assessed 03/14/25 03/14/25 13:48 Currently or been in a relationship where the following occur: No concerns reported Const General: no acute distress and alert HENMT Ears: TM's normal bilaterally and EAC's normal Throat: Yes posterior oropharynx normal and Yes tonsils normal (no TP congestion) Neck Neck: Yes supple and No lymphadenopathy Thyroid: Thyroid normal Resp Auscultation: clear to auscultation bilaterally, no rales and no wheezes Cardio Rate: regular rate Rhythm: regular rhythm Heart sounds: no murmurs GI Palpation (GI): Soft to palpation and nontender Auscultation: normal bowel sounds General: Yes no CVA tenderness Back/Spine/Pelvis Back: no CVA tenderness Thoracic/Lumbar Spine: No lumbar spinal tenderness Skin Rashes: no rashes Extrem General: Yes no clubbing, cyanosis or edema Coding Level of Care Code New Pt Level 4 (69709) Diagnoses Essential hypertension I10 Pure hypercholesterolemia E78.00 Acquired hypothyroidism E03.9 Allergic rhinitis, unspecified seasonality, unspecified trigger J30.9 Allergic rhinitis trigger: unspecified Allergic rhinitis seasonality: unspecified Obesity (BMI 30-39.9) E66.9 Encounter for screening mammogram for malignant neoplasm of breast Z12.31 Breast cancer screening modality: mammogram Additional Codes PHQ-9 - 63132 - PHQ-9 Billing: Yes ([id number]) Assessment & Plan Assessment & Plan (1) Essential hypertension: Code(s): I10 - Essential (primary) hypertension Category: Medical Plan: Reinforced low sodium diet - goal is systolic BP of at least 120 to 130 mm or less Patient's blood pressure is elevated today and has gone up even higher when rechecked - patient states that she has a Hx of white-coat syndrome, which is likely what is causing her blood pressure to be high today Continue Lisinopril 5 mg QD for now Will have her follow up with our nurse navigators in a few weeks for blood pressure recheck (2) Pure hypercholesterolemia: Code(s): E78.00 - Pure hypercholesterolemia, unspecified Category: Medical Plan: Reinforced low cholesterol diet - as she has not had follow up labs done in a while, will have her go and get her labs done and cholesterol levels rechecked ERI Continue Simvastatin 20 mg QD Will have her recheck her labs and fasting lipids in 4 months for follow up (3) Acquired hypothyroidism: Code(s): E03.9 - Hypothyroidism, unspecified Category: Medical Plan: Continue Levothyroxine 88 mcg QD Will recheck her TFTs for follow up (4) Allergic rhinitis: Code(s): J30.9 - Allergic rhinitis, unspecified Category: Medical Qualifiers: Allergic rhinitis trigger: unspecified Allergic rhinitis seasonality: unspecified Qualified Code(s): J30.9 - Allergic rhinitis, unspecified Plan: Continue Fluticasone 50 mcg nasal spray BID PRN (5) Obesity (BMI 30-39.9): Code(s): E66.9 - Obesity, unspecified Category: Medical Plan: Reinforced diet/exercise as tolerated/lose weight (6) Breast cancer screening: Code(s): Z12.39 - Encounter for other screening for malignant neoplasm of breast Category: Medical Qualifiers: Breast cancer screening modality: mammogram Qualified Code(s): Z12.31 - Encounter for screening mammogram for malignant neoplasm of breast Plan: Patient is due for her annual mammogram - new order for mammogram placed Plan Follow up in 4 months Orders: Orders Complete Blood Count Auto Diff 03/14/25 D64.9 - Anemia, unspecified Vitamin D 25-OH Total 03/14/25 E55.9 - Vitamin D deficiency, unspecified Comprehensive [place]. Panel Fast 4 Months E78.00 - Pure hypercholesterolemia, unspecified Lipid Panel 4 Months E78.00 - Pure hypercholesterolemia, unspecified Free T4 (Free Thyroxine) 4 Months E03.9 - Hypothyroidism, unspecified Thyroid Stimulating Hormone 03/14/25 E03.9 - Hypothyroidism, unspecified Free T4 (Free Thyroxine) 03/14/25 E03.9 - Hypothyroidism, unspecified Comprehensive [place]. Panel Fast 03/14/25 E78.00 - Pure hypercholesterolemia, unspecified Lipid Panel 03/14/25 E78.00 - Pure hypercholesterolemia, unspecified MM tomosynthesis screening BI 03/14/25 Z12.31 - Encounter for screening mammogram for malignant neoplasm of breast Thyroid Stimulating Hormone 4 Months E03.9 - Hypothyroidism, unspecified
[2025-03-14 14:32] VITALS: BP 146/84
== END 2025-03-14 14:41 | disposition home or self-care (01) ==
LOC: HO.HMCH 13:38
PROVIDERS: PCP Internal Medicine; Visit Provider Internal Medicine
DX: I10 Essential (primary) hypertension (principal); E78.00 Pure hypercholesterolemia, unspecified; E03.9 Hypothyroidism, unspecified; J30.9 Allergic rhinitis, unspecified; E66.9 Obesity, unspecified; Z12.31 Encounter for screening mammogram for malignant neoplasm of breast; Z68.30 Body mass index [BMI] 30.0-30.9, adult